=== PATIENT | male | born 1950 | race Caucasian/White ===

== ENCOUNTER 2018-01-16 03:35 | Emergency (ER) | payer MEDICARE, BC ==
--- NOTE | 2018-01-16 04:02 | EDM.PDOC ---
ED HPI GENERAL MEDICAL PROBLEM - General Chief Complaint: Chest Pain Time Seen by Provider: 01/16/18 03:45 Source of Information: Reports: Patient, Family History Limitations: Reports: No Limitations - History of Present Illness INITIAL COMMENTS - FREE TEXT/NARRATIVE: 67-year-old male with known coronary artery disease, had 2 stents placed just 48 hours ago and was discharged from the hospital yesterday, at 1:30 AM this morning developed some mild tightness in his chest and a very brief sharp pain in his left arm. It made him worried, so he called the ambulance and they recommended he come in and get a troponin checked. He did take one nitroglycerin he thought it had some effect on the discomfort. He had no shortness of breath, diaphoresis, nausea or vomiting. 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 Pain Score (Numeric/FACES): 2 - Related Data Allergies Allergy/AdvReac Type Severity Reaction Status Date / Time allopurinol Allergy Other Verified 01/16/18 03:37 Home Meds: Home Meds Aspirin [Halfprin] 81 mg PO DAILY 01/16/18 [History] Cholecalciferol (Vitamin D3) [Vitamin D] 1,000 units PO DAILY 01/16/18 [History] Clopidogrel [Plavix] 75 mg PO DAILY 01/16/18 [History] Glucosam HCl/Chondro Giles A/C/Mn [Glucosamine-Chondroitin Cap] 1 each PO DAILY [History] Losartan [Cozaar] 100 mg PO DAILY 01/16/18 [History] Magnesium Oxide [Magnesium] 400 mg PO DAILY 01/16/18 [History] Metoprolol Succinate [Toprol XL] 12.5 mg PO DAILY 01/16/18 [History] Nitroglycerin [Nitrostat] 0.4 mg SL Q5M 01/16/18 [History] Cora-3/DHA/Epa/Fish Oil [Cora 3 500 Softgel] 2 cap PO DAILY 01/16/18 [History] Omeprazole 20 mg PO Q48H 01/16/18 [History] Tadalafil [Cialis] 20 mg PO DAILY PRN 01/16/18 [History] Ubidecarenone [Co Q-10] 100 mg PO DAILY 01/16/18 [History] amLODIPine [Norvasc] 5 mg PO DAILY 01/16/18 [History] atorvaSTATin [Lipitor] 80 mg PO BEDTIME 01/16/18 [History] hydroCHLOROthiazide [Hydrochlorothiazide] 12.5 mg PO DAILY 01/16/18 [History] Past Medical History Cardiovascular History: Reports: Angina, CAD, [place], Prior Cardiac Arrest, Stents Gastrointestinal History: Reports: GERD Musculoskeletal History: Reports: Arthritis, Fracture Hematologic History: Reports: Anticoagulation Therapy Oncologic (Cancer) History: Reports: Basal Cell Carcinoma Dermatologic History: Reports: Melanoma - Past Surgical History Cardiovascular Surgical History: Reports: Coronary Artery Bypass, Coronary Artery Stent GI Surgical History: Reports: Colonoscopy Neurological Surgical History: Reports: Intracranial Dermatological Surgical History: Reports: Skin Biopsy Social & Family History - Tobacco Use Smoking Status *Q: Never Smoker - Caffeine Use Caffeine Use: Reports: Tea - Alcohol Use Days Per Week of Alcohol Use: 7 Number of Drinks Per Day: 1 Total Drinks Per Week: 7 - Recreational Drug Use Recreational Drug Use: No ED ROS GENERAL - Review of Systems Review Of Systems: See Below Constitutional: Denies: Fever, Chills HEENT: Reports: No Symptoms Respiratory: Denies: Shortness of Breath Cardiovascular: Reports: Other (Slight chest tightness, no pressure pain) GI/Abdominal: Reports: No Symptoms : Reports: No Symptoms Skin: Reports: No Symptoms Neurological: Reports: No Symptoms Psychiatric: Reports: Anxiety ED EXAM, GENERAL - Physical Exam Exam: See Below Exam Limited By: No Limitations General Appearance: Alert, No Apparent Distress Head: Atraumatic Respiratory/Chest: No Respiratory Distress, Lungs Clear Cardiovascular: Regular Rate, Rhythm GI/Abdominal: Soft, Non-Tender Extremities: No: Pedal Edema Neurological: Alert, Oriented Psychiatric: Anxious Skin Exam: Warm, Dry EKG INTERPRETATION Rhythm: NSR (EKG done per EMS was normal) Course - Vital Signs Last Recorded V/S: Last Vital Signs Temp 98.0 F 01/16/18 03:38 Pulse 60 01/16/18 03:38 Resp 13 01/16/18 03:38 BP 166/97 H 01/16/18 03:38 Pulse Ox 94 L 01/16/18 03:38 - Re-Assessments/Exams Free Text/Narrative Re-Assessment/Exam: 01/16/18 04:27 Explained to the patient that her troponin is not can be informative because of his recent procedure. I did discuss his situation with cardiology and Silva, it was felt that would be fine to send him home with the only evaluation possible being a trending troponin, drawn now and again 4 hours. When this was offered to the patient he elected to go home instead of waiting for hours. He' ll return if symptoms persist or worsen. Departure - Departure Time of Disposition: 04:32 Disposition: Home, Self-Care 01 Condition: Good Clinical Impression: Atypical chest pain Instructions: Nonspecific Chest Pain, [id number] Referrals: PCP,None [Primary Care Provider] - Forms: ED Department Discharge Care Plan Goals: Continue your current medications, and return anytime if chest symptoms are worsening and persistent.
== END 2018-01-16 04:31 | disposition home or self-care (01) ==
LOC: JP.ED 03:35
DX: R07.89 Other chest pain (principal); I25.2 Old myocardial infarction; Z95.5 Presence of coronary angioplasty implant and graft; I25.10 Atherosclerotic heart disease of native coronary artery without angina pectoris; Z79.82 Long term (current) use of aspirin; Z88.8 Allergy status to other drugs, medicaments and biological substances; Z79.899 Other long term (current) drug therapy
CPT/HCPCS: 99285

== ENCOUNTER 2018-01-19 18:00 | Emergency (ER) | payer MEDICARE, BC ==
--- NOTE | 2018-01-19 19:30 | EDM.PDOC ---
ED HPI GENERAL MEDICAL PROBLEM - General Chief Complaint: Upper Extremity Injury/Pain Stated Complaint: SWELLING IN RIGHT WRIST Time Seen by Provider: 01/19/18 18:20 Source of Information: Reports: Patient History Limitations: Reports: No Limitations - History of Present Illness INITIAL COMMENTS - FREE TEXT/NARRATIVE: pt had a angiogram on the left arm about 1 week ago. He is on asa and on plavix. He put his left hand in his pocket and he developed a hematoma rapidly. This was very raised up and now it has flattened out. He felt like it was slightly tender, He has no other symptoms. Onset: Today, Sudden Duration: Hour(s): Location: Reports: Upper Extremity, Right Associated Symptoms: Reports: No Other Symptoms - Related Data Allergies Allergy/AdvReac Type Severity Reaction Status Date / Time allopurinol Allergy Other Verified 01/19/18 18:25 Home Meds: Home Meds Aspirin [Halfprin] 81 mg PO DAILY 01/16/18 [History] Cholecalciferol (Vitamin D3) [Vitamin D] 1,000 units PO DAILY 01/16/18 [History] Clopidogrel [Plavix] 75 mg PO DAILY 01/16/18 [History] Glucosam HCl/Chondro Giles A/C/Mn [Glucosamine-Chondroitin Cap] 1 each PO DAILY [History] Losartan [Cozaar] 100 mg PO DAILY 01/16/18 [History] Magnesium Oxide [Magnesium] 400 mg PO DAILY 01/16/18 [History] Metoprolol Succinate [Toprol XL] 12.5 mg PO DAILY 01/16/18 [History] Nitroglycerin [Nitrostat] 0.4 mg SL Q5M 01/16/18 [History] [place]-3/DHA/Epa/Fish Oil [[place] 3 500 Softgel] 2 cap PO DAILY 01/16/18 [History] Omeprazole 20 mg PO Q48H 01/16/18 [History] Tadalafil [Cialis] 20 mg PO DAILY PRN 01/16/18 [History] Ubidecarenone [Co Q-10] 100 mg PO DAILY 01/16/18 [History] amLODIPine [Norvasc] 5 mg PO DAILY 01/16/18 [History] atorvaSTATin [Lipitor] 80 mg PO BEDTIME 01/16/18 [History] hydroCHLOROthiazide [Hydrochlorothiazide] 12.5 mg PO DAILY 01/16/18 [History] Past Medical History Cardiovascular History: Reports: Angina, CAD, [place], Prior Cardiac Arrest, Stents Gastrointestinal History: Reports: GERD Musculoskeletal History: Reports: Arthritis, Fracture Hematologic History: Reports: Anticoagulation Therapy Oncologic (Cancer) History: Reports: Basal Cell Carcinoma Dermatologic History: Reports: Melanoma - Past Surgical History Cardiovascular Surgical History: Reports: Coronary Artery Bypass, Coronary Artery Stent GI Surgical History: Reports: Colonoscopy Neurological Surgical History: Reports: Intracranial Dermatological Surgical History: Reports: Skin Biopsy Social & Family History - Tobacco Use Smoking Status *Q: Never Smoker - Caffeine Use Caffeine Use: Reports: Tea - Recreational Drug Use Recreational Drug Use: No Review of Systems - Review of Systems Review Of Systems: See Below Constitutional: Reports: No Symptoms Eyes: Reports: No Symptoms Ears: Reports: No Symptoms Nose: Reports: No Symptoms Mouth/Throat: Reports: No Symptoms Respiratory: Reports: No Symptoms Cardiovascular: Reports: No Symptoms GI/Abdominal: Reports: No Symptoms Genitourinary: Reports: No Symptoms Musculoskeletal: Reports: Other (bruising of the rt hand. ) ED EXAM, GENERAL - Physical Exam Exam: See Below Free Text/Narrative:: pt developed a sudden hematoma of the rt hand near the thumb. Exam Limited By: No Limitations General Appearance: Alert, No Apparent Distress, Anxious Ears: Normal TMs Nose: Normal Inspection Throat/Mouth: Normal Inspection Head: Atraumatic Neck: Normal Inspection Respiratory/Chest: No Respiratory Distress Extremities: Other (pt has a orange sized bruise on the dorsum of the rt hand. thjis is mildly tender. ) Neurological: Alert Course - Vital Signs Last Recorded V/S: Last Vital Signs Temp 36.1 C 01/19/18 18:18 Pulse 59 L 01/19/18 18:18 Resp 16 01/19/18 18:18 BP 179/61 H 01/19/18 18:18 Pulse Ox 98 01/19/18 18:18 - Orders/Labs/Meds Labs: Laboratory Tests 01/19/18 01/19/18 01/19/18 Range/Units 18:24 18:24 18:25 WBC 8.0 (4.5-11.0) K/uL RBC 4.19 L (4.30-5.90) M/uL Hgb 13.1 (12.0-15.0) g/dL Hct 38.3 L (40.0-54.0) % MCV 91 (80-98) fL MCH 31 (27-31) pg MCHC 34 (32-36) % Plt Count 279 (150-400) K/uL Neut % (Auto) 61 (36-66) % Lymph % (Auto) 22 L (24-44) % Mercer % (Auto) 10 H (2-6) % Eos % (Auto) 7 H (2-4) % Baso % (Auto) 0 (0-1) % PT 10.5 (9.5-12.0) sec INR 0.95 (0.80-1.20) APTT 30.9 (27.0-36.0) sec - Re-Assessments/Exams Free Text/Narrative Re-Assessment/Exam: 01/19/18 19:35 lab work looked normal. Departure - Departure Time of Disposition: 19:29 Disposition: Home, Self-Care 01 Condition: Fair Clinical Impression: Traumatic hematoma of right hand - Discharge Information Referrals: Lanette Watson MD [Primary Care Provider] - Forms: ED Department Discharge Care Plan Goals: cool pack and elevate. The rest of the hand may become bruised.
== END 2018-01-19 19:52 | disposition home or self-care (01) ==
LOC: JP.ED 18:00
DX: S60.221A Contusion of right hand, initial encounter (principal); K21.9 Gastro-esophageal reflux disease without esophagitis; I25.810 Atherosclerosis of coronary artery bypass graft(s) without angina pectoris; Z79.899 Other long term (current) drug therapy; Z95.1 Presence of aortocoronary bypass graft; Z79.82 Long term (current) use of aspirin; Z79.01 Long term (current) use of anticoagulants; Z88.8 Allergy status to other drugs, medicaments and biological substances; X58.XXXA Exposure to other specified factors, initial encounter
CPT/HCPCS: 36415; 85025; 85610; 85730; 99284

== ENCOUNTER 2021-07-07 16:15 | Emergency (ER) | payer OTHER, MEDICARE | END 2021-07-07 18:14 | disposition home or self-care (01) | LOC: JP.ED 16:15 | DX: R07.89 Other chest pain (principal); I25.2 Old myocardial infarction; I25.119 Atherosclerotic heart disease of native coronary artery with unspecified angina pectoris; Z88.8 Allergy status to other drugs, medicaments and biological substances; Z79.82 Long term (current) use of aspirin; Z79.02 Long term (current) use of antithrombotics/antiplatelets; Z79.899 Other long term (current) drug therapy; Z95.5 Presence of coronary angioplasty implant and graft | CPT/HCPCS: 36415; 80053; 83735; 84484; 85025; 93005; 93010; 99282; 99285-25 ==

== ENCOUNTER 2022-06-18 10:30 | Emergency (ER) | payer OTHER, MEDICARE | END 2022-06-18 12:11 | disposition home or self-care (01) | LOC: JP.ED 10:30 | DX: K40.90 Unilateral inguinal hernia, without obstruction or gangrene, not specified as recurrent (principal); I25.119 Atherosclerotic heart disease of native coronary artery with unspecified angina pectoris; E78.00 Pure hypercholesterolemia, unspecified; I10 Essential (primary) hypertension; I25.2 Old myocardial infarction; K21.9 Gastro-esophageal reflux disease without esophagitis; Z86.16 Personal history of COVID-19; Z79.82 Long term (current) use of aspirin; Z88.8 Allergy status to other drugs, medicaments and biological substances; Z79.899 Other long term (current) drug therapy; Z87.891 Personal history of nicotine dependence | CPT/HCPCS: 99284 ==

== ENCOUNTER 2022-08-15 08:43 | Observation (INO) | payer OTHER ==
[~2022-08-15 08:43] MED LIST: Bupivacaine 0.5% 50 ML MDV ONE; Bupivacaine 0.5%/EPINEPHrine 1:200,000 50 ML MDV ONE; Lidocaine 1% with EPINEPHrine 1:100,000 50 ML MDV ONE
[2022-08-15] MEDS ORDERED: Acetaminophen 500 MG Tab PO ONE (09:15)
[2022-08-15 09:36] LABS: ESTIMATED GFR 79 mL/min (>60)
[2022-08-15] MEDS ORDERED: Propofol 200 MG/20 ML SDV ONE ×4 (09:42→13:21)
[2022-08-15] MEDS ORDERED: fentaNYL 100 MCG/2 ML SDV ONE ×2 (09:42→12:56)
[2022-08-15] MEDS ORDERED: Midazolam 1 MG/ML 2 ML SDV ONE (09:42)
[2022-08-15] MEDS ORDERED: ceFAZolin 2 GM in Premix Bag 1 BAG IV ONE (10:15)
[2022-08-15] MEDS: Lactated Ringers 1,000 ML IV SCH ×3 (10:19→22:53)
[2022-08-15] MEDS ORDERED: Labetalol 20 MG/4 ML Syringe ONE (12:25)
[2022-08-15] MEDS ORDERED: Ondansetron 4 MG/2 ML SDV IVPUSH PRN (14:06)
[2022-08-15] MEDS ORDERED: Pramipexole 0.5 MG Tab PO PRN (14:41)
[2022-08-15] MEDS: Acetaminophen/HYDROcodone 325-5 MG Tab PO PRN ×2 (15:58→20:03)
[2022-08-15] MEDS: atorvaSTATin 20 MG Tab PO SCH (20:03)
[2022-08-16] MEDS: Acetaminophen/HYDROcodone 325-5 MG Tab PO PRN ×4 (00:11→13:37)
[2022-08-16] MEDS: Ezetimibe 10 MG Tab PO SCH (08:27)
[2022-08-16] MEDS: Cholecalciferol (Vitamin D3) 25 MCG Tab PO SCH (08:27)
[2022-08-16] MEDS: Pantoprazole 40 MG Tab.CR PO SCH (08:27)
[2022-08-16] MEDS: Metoprolol Succinate 25 MG Tab.ER PO SCH (08:28)
[2022-08-16] MEDS: Ketorolac 15 MG/ML SDV IVPUSH SCH ×3 (09:39→20:06)
[2022-08-16] MEDS: atorvaSTATin 20 MG Tab PO SCH (20:06)
[2022-08-16] MEDS ORDERED: Enoxaparin 30 MG/0.3 ML Syringe SUBCUT SCH (20:30)
[2022-08-17] MEDS: Ketorolac 15 MG/ML SDV IVPUSH SCH (03:28)
[2022-08-17] MEDS: Ezetimibe 10 MG Tab PO SCH (08:34)
[2022-08-17] MEDS: Pantoprazole 40 MG Tab.CR PO SCH (08:35)
[2022-08-17] MEDS: Metoprolol Succinate 25 MG Tab.ER PO SCH (08:35)
[2022-08-17] MEDS: Cholecalciferol (Vitamin D3) 25 MCG Tab PO SCH (08:35)
[2022-08-17] MEDS: Acetaminophen/HYDROcodone 325-5 MG Tab PO PRN (08:35)
== END 2022-08-17 11:06 | disposition home or self-care (01) ==
LOC: JP.SDS 08:43 → JP.MS 14:07
PROVIDERS: ADMIT Student in an Organized Health Care Education/Training Program; ATTEND Student in an Organized Health Care Education/Training Program
DX: K40.90 Unilateral inguinal hernia, without obstruction or gangrene, not specified as recurrent (principal); I25.10 Atherosclerotic heart disease of native coronary artery without angina pectoris; E78.2 Mixed hyperlipidemia; I49.3 Ventricular premature depolarization; R93.1 Abnormal findings on diagnostic imaging of heart and coronary circulation; Z79.82 Long term (current) use of aspirin; Z79.899 Other long term (current) drug therapy; Z87.891 Personal history of nicotine dependence; Z95.5 Presence of coronary angioplasty implant and graft; Z88.8 Allergy status to other drugs, medicaments and biological substances
CPT/HCPCS: 36415; 80048; 80053; 83735; 84100; 85018; 85027; 85610; A9270-GY; C1713; C1781; J0690; J1650; J1885; J2250; J2405; J2704; J3010; J3490; J7120

== ENCOUNTER 2022-10-31 10:52 | Emergency (ER) | payer OTHER ==
[2022-10-31] MEDS ORDERED: Sodium Chloride 0.9% 10 ML Syringe FLUSH PRN (11:49)
[2022-10-31] MEDS ORDERED: Sodium Chloride 0.9% 1,000 ML IV STA (11:49)
[2022-10-31] MEDS ORDERED: Pantoprazole 40 MG Vial IVPUSH ONE (11:53)
[2022-10-31 12:07] LABS: BASOPHILS ABSOLUTE AUTO 0.04 K/uL (0.00-0.10); BASOPHILS PERCENT AUTO 0.7 % (0.1-1.3); EOSINOPHILS ABSOLUTE AUTO 0.14 K/uL (0.00-0.40); EOSINOPHILS PERCENT AUTO 2.3 % (0.0-5.4); HEMATOCRIT 35.6 % (38.4-49.7); HEMOGLOBIN 12.5 g/dL (12.9-16.9); IMMATURE GRAN ABSOLUTE AUTO 0.05 K/uL (0.00-0.23); IMMATURE GRAN PERCENT AUTO 0.8 % (0.0-0.7); LYMPHOCYTES ABSOLUTE AUTO 1.15 K/uL (0.8-3.3); LYMPHOCYTES PERCENT AUTO 19.1 % (11.4-47.7); MEAN CORPUSCULAR HEMOGLOBIN 30.3 pg (31.6-35.5); MEAN CORPUSCULAR HGB CONC 35.1 g/dL (31.6-35.5); MEAN CORPUSCULAR VOLUME 86.2 fL (81.4-99.0); NEUTROPHILS ABSOLUTE AUTO 4.03 K/uL (1.0-7.6); NEUTROPHILS PERCENT AUTO 67.1 % (40.0-78.1); PLATELET COUNT,PLT 198 K/uL (130-375); RED BLOOD CELL COUNT 4.13 M/uL (4.14-5.76)
[2022-10-31 12:51] LABS: A/G RATIO 1.1 (1.2-2.2); ALANINE AMINOTRANSFERASE,ALT 37 U/L (12-78); ALBUMIN 4.1 g/dL (3.4-5.0); ALKALINE PHOSPHATASE 95 U/L (46-116); ASPARTATE AMNIOTRANSFERASE,AST 33 U/L (15-37); BILIRUBIN TOTAL 0.7 mg/dL (0.2-1.0); BLOOD UREA NITROGEN,BUN 10 mg/dL (7-18); CALCIUM 8.9 mg/dL (8.5-10.1); CARBON DIOXIDE,CO2 25 mmol/L (21-32); CHLORIDE,CL 88 mmol/L (100-108); EST CRCL DRUG DOSING (CG) 59.37 mL/min; ESTIMATED GFR 79 mL/min (>60); GLUCOSE RANDOM 85 mg/dL (74-106); POTASSIUM,K 4.8 mmol/L (3.6-5.2); PROTEIN TOTAL,TP 7.7 g/dL (6.4-8.2); SODIUM,NA 120 mmol/L (140-148)
[2022-10-31 13:00] LABS: ANION GAP 11.8 mmol/L (5.0-14.0)
[2022-10-31 13:01] LABS: TROPONIN I HIGH SENSITIVITY 93.1 pg/mL (<=60.3)
[2022-10-31 13:41] LABS: APPEARANCE,URINE CLEAR (CLEAR); BILIRUBIN,URINE NEGATIVE (NEGATIVE); COLOR,URINE YELLOW (YELLOW); GLUCOSE,URINE NEGATIVE (NEGATIVE); KETONES,URINE NEGATIVE (NEGATIVE); LEUKOCYTE ESTERASE,URINE NEGATIVE (NEGATIVE); NITRITE,URINE NEGATIVE (NEGATIVE); OCCULT BLOOD,URINE NEGATIVE (NEGATIVE); PH,URINE 7.5 (5.0-8.0); PROTEIN,URINE NEGATIVE (NEGATIVE); UROBILINOGEN,URINE 0.2 EU/dL (0.2-1.0)
[2022-10-31] MEDS ORDERED: Aspirin 81 MG Tab.Chew PO ONE (13:44)
[2022-10-31 13:49] LABS: RBC,URINE NOT SEEN (0-5)
[2022-10-31 13:50] LABS: AMORPHOUS SEDIMENT,URINE RARE; BACTERIA,URINE NOT SEEN; EPITHELIAL CELLS,URINE NOT SEEN; MUCUS,URINE NOT SEEN; WBC,URINE NOT SEEN (0-5)
== END 2022-10-31 17:30 | disposition home or self-care (01) ==
LOC: JP.ED 10:52
DX: E87.1 Hypo-osmolality and hyponatremia (principal); I25.709 Atherosclerosis of coronary artery bypass graft(s), unspecified, with unspecified angina pectoris; E78.00 Pure hypercholesterolemia, unspecified; I10 Essential (primary) hypertension; I25.2 Old myocardial infarction; K21.9 Gastro-esophageal reflux disease without esophagitis; M19.90 Unspecified osteoarthritis, unspecified site; Z79.01 Long term (current) use of anticoagulants; Z86.16 Personal history of COVID-19; Z87.891 Personal history of nicotine dependence; Z88.8 Allergy status to other drugs, medicaments and biological substances; Z79.899 Other long term (current) drug therapy; Z79.82 Long term (current) use of aspirin
CPT/HCPCS: 36415; 71045; 80053; 81001; 83605; 84145; 84484; 85025; 93005; 96361; 96374; 99285; C9113; J3490; J7030; 93010; 99284

== ENCOUNTER 2022-12-19 19:40 | Emergency (ER) | payer OTHER ==
[2022-12-19] MEDS ORDERED: Sodium Chloride 0.9% 10 ML Syringe FLUSH PRN (20:05)
[2022-12-19] MEDS ORDERED: Sodium Chloride 0.9% 1,000 ML IV SCH (20:15)
[2022-12-19 20:30] LABS: BASOPHILS ABSOLUTE AUTO 0.03 K/uL (0.00-0.10); BASOPHILS PERCENT AUTO 0.4 % (0.1-1.3); EOSINOPHILS ABSOLUTE AUTO 0.21 K/uL (0.00-0.40); HEMATOCRIT 34.5 % (38.4-49.7); HEMOGLOBIN 11.7 g/dL (12.9-16.9); IMMATURE GRAN ABSOLUTE AUTO 0.03 K/uL (0.00-0.23); IMMATURE GRAN PERCENT AUTO 0.4 % (0.0-0.7); LYMPHOCYTES ABSOLUTE AUTO 1.06 K/uL (0.8-3.3); LYMPHOCYTES PERCENT AUTO 15.3 % (11.4-47.7); MEAN CORPUSCULAR HEMOGLOBIN 30.2 pg (31.6-35.5); MEAN CORPUSCULAR HGB CONC 33.9 g/dL (31.6-35.5); MEAN CORPUSCULAR VOLUME 89.1 fL (81.4-99.0); MONOCYTES ABSOLUTE AUTO 0.71 K/uL (0.20-0.90); MONOCYTES PERCENT AUTO 10.3 % (3.3-12.6); NEUTROPHILS ABSOLUTE AUTO 4.87 K/uL (1.0-7.6); NEUTROPHILS PERCENT AUTO 70.6 % (40.0-78.1); PLATELET COUNT,PLT 194 K/uL (130-375); RED BLOOD CELL COUNT 3.87 M/uL (4.14-5.76); WHITE BLOOD CELL COUNT,WBC 6.9 K/uL (3.2-11.0)
[2022-12-19 20:50] LABS: A/G RATIO 1.3 (1.2-2.2); ALANINE AMINOTRANSFERASE,ALT 32 U/L (12-78); ALKALINE PHOSPHATASE 70 U/L (46-116); ASPARTATE AMNIOTRANSFERASE,AST 30 U/L (15-37); BILIRUBIN TOTAL 0.3 mg/dL (0.2-1.0); BLOOD UREA NITROGEN,BUN 13 mg/dL (7-18); CALCIUM 9.2 mg/dL (8.5-10.1); CARBON DIOXIDE,CO2 27 mmol/L (21-32); CHLORIDE,CL 99 mmol/L (100-108); EST CRCL DRUG DOSING (CG) 58.48 mL/min; ESTIMATED GFR 79 mL/min (>60); GLUCOSE RANDOM 91 mg/dL (74-106); POTASSIUM,K 4.1 mmol/L (3.6-5.2); SODIUM,NA 134 mmol/L (140-148)
[2022-12-19 20:54] LABS: ANION GAP 12.1 mmol/L (5.0-14.0)
== END 2022-12-19 22:36 | disposition home or self-care (01) ==
LOC: JP.ED 19:40
DX: E86.0 Dehydration (principal); I25.119 Atherosclerotic heart disease of native coronary artery with unspecified angina pectoris; E78.00 Pure hypercholesterolemia, unspecified; I10 Essential (primary) hypertension; I25.2 Old myocardial infarction; K21.9 Gastro-esophageal reflux disease without esophagitis; Z86.16 Personal history of COVID-19; Z87.891 Personal history of nicotine dependence; Z88.8 Allergy status to other drugs, medicaments and biological substances; Z79.82 Long term (current) use of aspirin; Z79.899 Other long term (current) drug therapy
CPT/HCPCS: 36415; 80053; 85025; 96360; 99285; J3490; J7030

== ENCOUNTER 2023-03-18 12:05 | Emergency (ER) | payer OTHER ==
[2023-03-18 12:57] LABS: BASOPHILS ABSOLUTE AUTO 0.03 K/uL (0.00-0.10); BASOPHILS PERCENT AUTO 0.4 % (0.1-1.3); EOSINOPHILS ABSOLUTE AUTO 0.21 K/uL (0.00-0.40); EOSINOPHILS PERCENT AUTO 3.1 % (0.0-5.4); HEMATOCRIT 30.9 % (38.4-49.7); HEMOGLOBIN 10.8 g/dL (12.9-16.9); IMMATURE GRAN ABSOLUTE AUTO 0.06 K/uL (0.00-0.23); IMMATURE GRAN PERCENT AUTO 0.9 % (0.0-0.7); LYMPHOCYTES ABSOLUTE AUTO 0.79 K/uL (0.8-3.3); LYMPHOCYTES PERCENT AUTO 11.5 % (11.4-47.7); MEAN CORPUSCULAR HEMOGLOBIN 30.9 pg (31.6-35.5); MEAN CORPUSCULAR VOLUME 88.5 fL (81.4-99.0); MONOCYTES ABSOLUTE AUTO 0.74 K/uL (0.20-0.90); MONOCYTES PERCENT AUTO 10.8 % (3.3-12.6); NEUTROPHILS ABSOLUTE AUTO 5.04 K/uL (1.0-7.6); NEUTROPHILS PERCENT AUTO 73.3 % (40.0-78.1); PLATELET COUNT,PLT 179 K/uL (130-375); RED BLOOD CELL COUNT 3.49 M/uL (4.14-5.76); WHITE BLOOD CELL COUNT,WBC 6.9 K/uL (3.2-11.0)
[2023-03-18 13:13] LABS: ANION GAP 12.8 mmol/L (5.0-14.0); CALCIUM 8.6 mg/dL (8.5-10.1); EST CRCL DRUG DOSING (CG) 58.48 mL/min; POTASSIUM,K 4.8 mmol/L (3.6-5.2)
[2023-03-18] MEDS ORDERED: Sodium Chloride 0.9% 10 ML Syringe FLUSH PRN (13:16)
[2023-03-18] MEDS ORDERED: Sodium Chloride 0.9% 500 ML IV ONE (13:16)
== END 2023-03-18 15:14 | disposition home or self-care (01) ==
LOC: JP.ED 12:05
DX: S00.83XA Contusion of other part of head, initial encounter (principal); S40.012A Contusion of left shoulder, initial encounter; I25.10 Atherosclerotic heart disease of native coronary artery without angina pectoris; E86.0 Dehydration; R55 Syncope and collapse; E87.1 Hypo-osmolality and hyponatremia; I25.119 Atherosclerotic heart disease of native coronary artery with unspecified angina pectoris; I10 Essential (primary) hypertension; I25.2 Old myocardial infarction; E78.00 Pure hypercholesterolemia, unspecified; K21.9 Gastro-esophageal reflux disease without esophagitis; M19.90 Unspecified osteoarthritis, unspecified site; Z87.891 Personal history of nicotine dependence; Z86.16 Personal history of COVID-19; Z88.8 Allergy status to other drugs, medicaments and biological substances; Z79.82 Long term (current) use of aspirin; Z79.02 Long term (current) use of antithrombotics/antiplatelets; Z79.899 Other long term (current) drug therapy; Z95.0 Presence of cardiac pacemaker; Z95.1 Presence of aortocoronary bypass graft; W18.30XA Fall on same level, unspecified, initial encounter; Y92.000 Kitchen of unspecified non-institutional (private) residence as the place of occurrence of the external cause
CPT/HCPCS: 36415; 70450; 70450-26; 71045; 71045-26; 73030-26-LT; 73030-LT; 80048; 83735; 85025; 93005; 93010; 99284; J3490; J7040

== ENCOUNTER 2023-08-26 13:11 | Emergency (ER) | payer OTHER ==
[2023-08-26 13:33] LABS: BASOPHILS PERCENT AUTO 0.2 % (0.1-1.3); EOSINOPHILS ABSOLUTE AUTO 0.17 K/uL (0.00-0.40); EOSINOPHILS PERCENT AUTO 1.7 % (0.0-5.4); HEMOGLOBIN 12.3 g/dL (12.9-16.9); IMMATURE GRAN ABSOLUTE AUTO 0.03 K/uL (0.00-0.23); IMMATURE GRAN PERCENT AUTO 0.3 % (0.0-0.7); LYMPHOCYTES ABSOLUTE AUTO 0.71 K/uL (0.8-3.3); MEAN CORPUSCULAR HEMOGLOBIN 29.4 pg (31.6-35.5); MEAN CORPUSCULAR HGB CONC 34.2 g/dL (31.6-35.5); MEAN CORPUSCULAR VOLUME 86.1 fL (81.4-99.0); MONOCYTES ABSOLUTE AUTO 0.77 K/uL (0.20-0.90); MONOCYTES PERCENT AUTO 7.6 % (3.3-12.6); NEUTROPHILS ABSOLUTE AUTO 8.42 K/uL (1.0-7.6); NEUTROPHILS PERCENT AUTO 83.2 % (40.0-78.1); PLATELET COUNT,PLT 212 K/uL (130-375); RED BLOOD CELL COUNT 4.18 M/uL (4.14-5.76); WHITE BLOOD CELL COUNT,WBC 10.1 K/uL (3.2-11.0)
[2023-08-26 13:34] LABS: BASOPHILS ABSOLUTE AUTO 0.02 K/uL (0.00-0.10)
[2023-08-26 13:44] LABS: ANION GAP 11.3 mmol/L (5.0-14.0); BLOOD UREA NITROGEN,BUN 13 mg/dL (7-18); CALCIUM 9.8 mg/dL (8.5-10.1); CARBON DIOXIDE,CO2 29 mmol/L (21-32); CHLORIDE,CL 94 mmol/L (100-108); CREATININE 1.2 mg/dL (0.8-1.3); ESTIMATED GFR 63 mL/min (>60); GLUCOSE RANDOM 102 mg/dL (74-106); POTASSIUM,K 4.3 mmol/L (3.6-5.2); SODIUM,NA 130 mmol/L (140-148)
[2023-08-26] MEDS: Tranexamic Acid 1,000 MG/10 ML Vial TOP ONE (13:47)
[2023-08-26] MEDS: Sodium Chloride 0.9% 1,000 ML IV SCH (14:05)
[2023-08-26] MEDS: Lidocaine 1% with EPINEPHrine 1:100,000 20 ML MDV INJECT ONE (14:36)
[2023-08-26] MEDS: Diphtheria,Pertussis(Acell),Tetanus Vaccine 0.5 ML Syringe IM ONE (15:14)
[2023-08-26] MEDS: Bacitracin Oint 1 GM U/D Packet TOP ONE (15:14)
== END 2023-08-26 15:34 | disposition home or self-care (01) ==
LOC: JP.ED 13:11
DX: S01.81XA Laceration without foreign body of other part of head, initial encounter (principal); I10 Essential (primary) hypertension; I25.2 Old myocardial infarction; I25.10 Atherosclerotic heart disease of native coronary artery without angina pectoris; E78.00 Pure hypercholesterolemia, unspecified; K21.9 Gastro-esophageal reflux disease without esophagitis; Z95.5 Presence of coronary angioplasty implant and graft; Z95.1 Presence of aortocoronary bypass graft; Z86.16 Personal history of COVID-19; Z88.8 Allergy status to other drugs, medicaments and biological substances; Z79.82 Long term (current) use of aspirin; Z79.899 Other long term (current) drug therapy; Z23 Encounter for immunization; W01.0XXA Fall on same level from slipping, tripping and stumbling without subsequent striking against object, initial encounter
CPT/HCPCS: 12013; 36415; 70450; 72125; 76377; 80048; 85025; 90471; 90715; 96360; 99284; J7030